=== PATIENT | male | born 1970 | race Caucasian/White ===

== ENCOUNTER 2023-01-21 06:08 | Day surgery (SDC) | payer MEDICARE, MEDICAID ==
[~2023-01-21] VITALS: Ht 170.2 cm; Wt 98.6 kg
[~2023-01-21 06:08] MED LIST: ALBU8.5H; ANOR1AER INH; BENA25CA4 PO; CYCLOPENTOLATE 1% OPHTH SOLN 2ML BTL OD SCH; FLURBIPROFEN 0.03% OPHTH SOLN 2.5 ML OD SCH; GLIP10TA18 PO; JANU100T PO; LISI5TAB11 PO; METF10004 PO; MONT10TA97 PO; PHENYLEPHRINE 2.5% OPHTH SOL 2ML OD SCH; SEMA7TAB2 PO; SIMV20TA22 PO; TETRACAINE 0.5% OPHTH SOLN 4ML OD SCH
[2023-01-21] MEDS ORDERED: LIDOCAINE 1% SDV 5ML VIAL As Ordered ONE (06:33)
[2023-01-21] MEDS ORDERED: LR 1,000 ML IV SCH (07:00)
[2023-01-21] MEDS ORDERED: TRYPAN BLUE 0.06 % 2.25 ML OPHTH SYR (VISIONBLUE) As Ordered ONE (07:49)
[2023-01-21] MEDS ORDERED: MIDAZOLAM INJ 2MG/2ML VIAL As Ordered ONE (08:34)
[2023-01-21] MEDS ORDERED: fentaNYL 100 MCG/2 ML INJECTION As Ordered ONE (08:34)
[2023-01-21 09:00] VITALS: BP 136/99; TEMP 97.6; O2SAT 97
== END 2023-01-21 09:40 | disposition home or self-care (01) ==
LOC: M SDC 06:08
PROVIDERS: ATTEND Ophthalmology
DX: H25.11 Age-related nuclear cataract, right eye (principal); E78.5 Hyperlipidemia, unspecified; E11.9 Type 2 diabetes mellitus without complications; M19.90 Unspecified osteoarthritis, unspecified site; F17.220 Nicotine dependence, chewing tobacco, uncomplicated; Z79.51 Long term (current) use of inhaled steroids; Z79.84 Long term (current) use of oral hypoglycemic drugs; Z88.0 Allergy status to penicillin; Z79.899 Other long term (current) drug therapy; J45.909 Unspecified asthma, uncomplicated
CPT/HCPCS: 66984; J2250; J3010; V2632